=== PATIENT | female | born 1990 | race African-American/Black ===

== ENCOUNTER 2024-04-18 15:15 | Outpatient (CLI) | payer BC, OTHER, SELFPAY ==
[2024-04-18 16:14] LABS: Beta HCG Quantitative < 2.39 mIU/ML
== END 2024-04-18 15:16 | disposition home or self-care (01) ==
LOC: ANHLAB 15:16
PROVIDERS: Visit Provider Student in an Organized Health Care Education/Training Program
DX: N92.6 Irregular menstruation, unspecified (principal)
CPT/HCPCS: 36415; 84702